=== PATIENT | male | born 1975 | race Caucasian/White ===

== ENCOUNTER 2016-02-27 14:54 | Emergency (ER) | payer OTHER ==
[~2016-02-27] VITALS: Ht 190.5 cm; Wt 104.3 kg
--- NOTE | ~2016-02-27 | EKG ---
[place] [address] [facility] [place] [address] ELECTROCARDIOGRAM REPORT Name: TIP SANCHEZ Room #: JEANETTE Hendrix#: [id number] Admission: 02/27/16 Attend Phys: Discharge: 02/27/16 Date of : 71 Report #: [id number] THIS REPORT FOR: //name// [facility] ED Test Date: 2016-02-27 Test Time: 14:57:07 Pat Name: TIP SANCHEZ Department: Room: Gender: [employer]: sandra schulz : 1975 Requested By: Yvonne Wisdom Order Number: [id number] MD: Heron Sapmson Measurements Intervals [place] Rate: 99 P: 42 HI: 148 QRS: 69 QRSD: 97 T: 25 QT: 328 QTc: 421 Interpretive Statements Sinus rhythm No significant abnormality No previous ECG available for comparison Electronically Signed On 02-28-2016 8:16:01 GUITAR INSTRUCTOR by Heron Sampson [email or web address] <ELECTRONICALLY SIGNED> By: Heron Sampson MD, [facility] 02/28/16 0816 1457 1457 Heron Sampson MD, FACC /EPI
[2016-02-27 15:17] LABS: HEMATOCRIT 45.1 % (42.0-52.0); HEMOGLOBIN 14.7 gm/dL (14.0-18.0); MCH 26.9 pg (26.0-34.0); MCHC 32.7 % (28.0-37.0); MCV 82.2 fL (80.0-100.0); RBC 5.48 mil/uL (4.50-6.00); RDW 16.4 % (10.5-14.5); WBC 9.4 thou/uL (4.0-11.0)
[2016-02-27 15:21] LABS: CALCIUM 9.6 mg/dL (8.5-10.1); POTASSIUM 3.7 mmol/L (3.5-5.1)
[2016-02-27 15:49] VITALS: BP 126/88
== END 2016-02-27 15:50 | disposition home or self-care (01) ==
LOC: ER 14:54
PROVIDERS: Emergency Medicine
DX: F41.9 Anxiety disorder, unspecified (principal); R06.02 Shortness of breath; R00.2 Palpitations; R68.83 Chills (without fever); F17.210 Nicotine dependence, cigarettes, uncomplicated; F10.99 Alcohol use, unspecified with unspecified alcohol-induced disorder; F12.90 Cannabis use, unspecified, uncomplicated

== ENCOUNTER → 2020-05-10 | Outpatient (CLI) | payer OTHER | LOC: RAD 11:16 | PROVIDERS: ATTEND Family Medicine | DX: M47.814 Spondylosis without myelopathy or radiculopathy, thoracic region (principal); M47.816 Spondylosis without myelopathy or radiculopathy, lumbar region ==